=== PATIENT | male | born 1955 | race Caucasian/White ===

== ENCOUNTER 2017-01-30 05:43 | Day surgery (SDC) | payer OTHER ==
[2017-01-29 15:54] VITALS: BMI 28.2
[2017-01-30] MEDS ORDERED: ONDANSETRON 4 MG/2 ML VIAL IVPUSH PRN (06:56)
--- NOTE | 2017-01-30 07:08 | HP ---
Admitting History and Physical - Admission History of Present Illness: pt is a 61 y/o male with a past medical history of hypertension, gerd, NIDDM, and depression. Patient presents for ECT. This will be his first ect session. He reports struggling with depression for several years and has been placed on various of medications with no relief of depressive symptoms. He denies any suicidal or homicidal ideation, visual or auditory hallucinations. he denies any suicidal attempts in the past. patient does reports a recent admission to [facility] ([facility]) for epigastric pain. He was evaluated by cardiology, and echo and stress test was normal as per the patient History Source: Patient, Family Member Limitations to Obtaining History: No Limitations - Past Medical History Cardiovascular: Yes: HTN Gastrointestinal: Yes: GERD - Smoking History Smoking history: Never smoked - Alcohol/Substance Use Hx Alcohol Use: No Home Medications - Allergies Allergies/Adverse Reactions: Allergies Allergy/AdvReac Type Severity Reaction Status Date / Time amoxicillin trihydrate Allergy Nausea Verified 01/29/17 15:42 [From Augmentin] potassium clavulanate Allergy Nausea Verified 01/29/17 15:42 [From Augmentin] - Home Medications Home Medications: Ambulatory Orders Alendronate Na [Fosamax] 70 mg PO Q7D 01/30/17 Amlodipine Besylate [Norvasc -] 10 mg PO DAILY 01/30/17 Aripiprazole [Abilify] 20 mg PO DAILY 01/30/17 Clonazepam [Klonopin] 1 mg PO ASDIR PRN 01/30/17 Escitalopram Oxalate [Lexapro -] 20 mg PO DAILY 01/30/17 Esomeprazole Mag Trihydrate [NexIUM for SUSP] 40 mg PO BID 01/30/17 Losartan Potassium 50 mg PO DAILY 01/30/17 Metformin HCl [Glucophage] 1,000 mg PO BID 01/30/17 Risperidone [Risperdal] 1 mg PO HS 01/30/17 Simvastatin [Zocor -] 40 mg PO HS 01/30/17 Sucralfate Oral Suspension [Carafate *Oral Susp*] 1 gm PO BID 01/30/17 Zolpidem Tartrate [Ambien] 10 mg PO HS 01/30/17 Family Disease History - Family Disease History Family History: Denies Review of Systems - Review of Systems Constitutional: reports: No Symptoms Eyes: reports: No Symptoms HENT: reports: No Symptoms Neck: reports: No Symptoms Cardiovascular: reports: No Symptoms Respiratory: reports: No Symptoms Gastrointestinal: reports: No Symptoms Genitourinary: reports: No Symptoms Musculoskeletal: reports: No Symptoms Integumentary: reports: No Symptoms Neurological: reports: No Symptoms Endocrine: reports: No Symptoms Hematology/Lymphatic: reports: No Symptoms Psychiatric: reports: Depression Physical Examination Vital Signs: Vital Signs Temperature 98 F 01/30/17 06:35 Pulse Rate 72 01/30/17 06:35 Respiratory Rate 18 01/30/17 06:35 Blood Pressure 132/72 01/30/17 06:35 O2 Sat by Pulse Oximetry (%) 96 01/30/17 06:35 Constitutional: Yes: Well Nourished, No Distress, Calm Eyes: Yes: WNL, Conjunctiva Clear, EOM Intact HENT: Yes: WNL, Atraumatic, Normocephalic Neck: Yes: WNL, Supple, Trachea Midline Cardiovascular: Yes: WNL, Regular Rate and Rhythm, S1, S2 Respiratory: Yes: WNL, Regular, CTA Bilaterally Gastrointestinal: Yes: WNL, Normal Bowel Sounds, Soft ...Rectal Exam: Yes: Deferred Renal/: Yes: WNL Breast(s): Yes: WNL Musculoskeletal: Yes: WNL Extremities: Yes: WNL Edema: No Peripheral Pulses WNL: Yes Peripheral Pulses: Left Radial: 4+, Left Doralis Pedis: 3+, Right Dorsalis Pedis : 3+, Left Femoral: 3+, Right Femoral: 3+ Integumentary: Yes: WNL Neurological: Yes: WNL, Alert, Oriented ...Motor Strength: WNL Psychiatric: Yes: WNL, Alert, Oriented, Other (flat affect) Labs: 01/13 reviewed Imaging - Results EKG: Image Reviewed, Other (nsr nst changes to inferior leads unchanged from prior ekg 01/08/17) Other: Other (echo lvef 60-65% stress echo wnl 2013) Assessment/Plan pt is a 61 y/o male that presents for ect, pt has received anesthesia in the past and denies any adverse reaction to anesthesia labs, ekg, and echo reports reviewed pt is low risk for procedure informed consent, risks/benefits to be obtained by Dr Liu
[2017-01-30] MEDS ORDERED: KETAMINE HCL 500 MG/10 ML VIAL ONE (07:30)
[2017-01-30 09:18] VITALS: TEMP 97.6
[2017-01-30 09:19] VITALS: BP 128/77; PULSE 74
--- NOTE | 2017-01-30 13:53 | EKG ---
Test Reason : Blood Pressure : / mmHG Vent. Rate : 072 BPM Atrial Rate : 072 BPM P-R Int : 148 ms QRS Dur : 088 ms QT Int : 368 ms P-R-T Axes : 010 000 005 degrees QTc Int : 402 ms SINUS RHYTHM NONSPECIFIC ST AND T WAVE ABNORMALITY NO PREVIOUS ECGS AVAILABLE Confirmed by MARCO BUCHANAN MD ([id number] on 01/30/2017 1:53:27 PM Referred By: Bennie Liu Confirmed By:MARCO BUCHANAN MD
== END 2017-01-30 09:00 | disposition home or self-care (01) ==
LOC: FECT 05:43
PROVIDERS: ATTEND Psychiatry & Neurology Psychiatry
PROC: GZB4ZZZ Other Electroconvulsive Therapy (ICD-10-PCS; principal; 2017-01-30 07:45)
DX: F33.2 Major depressive disorder, recurrent severe without psychotic features (principal)
CPT/HCPCS: 90870; 93005; 94760

== ENCOUNTER 2017-02-03 05:41 | Day surgery (SDC) | payer OTHER ==
[2017-01-30 11:08] VITALS: BMI 28.2
[2017-02-03] MEDS ORDERED: KETAMINE HCL 500 MG/10 ML VIAL ONE (08:24)
[2017-02-03 09:40] VITALS: TEMP 98
[2017-02-03 09:42] VITALS: BP 150/78; PULSE 75
== END 2017-02-03 09:25 | disposition home or self-care (01) ==
LOC: FECT 05:41
PROVIDERS: ATTEND Psychiatry & Neurology Psychiatry
PROC: GZB4ZZZ Other Electroconvulsive Therapy (ICD-10-PCS; principal; 2017-02-03 08:00)
DX: F33.2 Major depressive disorder, recurrent severe without psychotic features (principal)
CPT/HCPCS: 90870; 94760

== ENCOUNTER 2017-02-05 05:35 | Day surgery (SDC) | payer OTHER ==
[2017-01-30 12:05] VITALS: BMI 28.2
[2017-02-05] MEDS ORDERED: KETAMINE HCL 500 MG/10 ML VIAL ONE (08:32)
[2017-02-05] MEDS ORDERED: ONDANSETRON 4 MG/2 ML VIAL IVPUSH PRN (09:29)
[2017-02-05] MEDS ORDERED: LACTATED RINGERS SOLUTION 1,000 ML IV SCH (09:30)
[2017-02-05 10:05] VITALS: TEMP 97.7
[2017-02-05 10:07] VITALS: BP 145/84; PULSE 84
== END 2017-02-05 10:00 | disposition home or self-care (01) ==
LOC: FECT 05:35
PROVIDERS: ATTEND Psychiatry & Neurology Psychiatry
PROC: GZB4ZZZ Other Electroconvulsive Therapy (ICD-10-PCS; principal; 2017-02-05 08:30)
DX: F33.2 Major depressive disorder, recurrent severe without psychotic features (principal)
CPT/HCPCS: 90870; 94760

== ENCOUNTER 2017-02-07 06:17 | Day surgery (SDC) | payer OTHER ==
[2017-01-30 12:25] VITALS: BMI 28.2
[2017-02-07 07:08] VITALS: TEMP 97.7
[2017-02-07] MEDS ORDERED: ACETAMINOPHEN INJECTION 100 ML IVPB ONE (07:41)
[2017-02-07] MEDS ORDERED: KETAMINE HCL 500 MG/10 ML VIAL ONE (07:43)
[2017-02-07 08:58] VITALS: BP 129/71; PULSE 62
== END 2017-02-07 09:05 | disposition home or self-care (01) ==
LOC: FECT 06:17
PROVIDERS: ATTEND Psychiatry & Neurology Psychiatry
PROC: GZB4ZZZ Other Electroconvulsive Therapy (ICD-10-PCS; principal; 2017-02-07 07:30)
DX: F33.2 Major depressive disorder, recurrent severe without psychotic features (principal)
CPT/HCPCS: 90870; 94760

== ENCOUNTER 2017-02-10 05:42 | Day surgery (SDC) | payer OTHER ==
[2017-02-04 11:28] VITALS: BMI 28.2
[2017-02-10] MEDS ORDERED: KETAMINE HCL 500 MG/10 ML VIAL ONE (07:52)
[2017-02-10 08:50] VITALS: TEMP 98.9
[2017-02-10 09:04] VITALS: BP 157/78; PULSE 73
== END 2017-02-10 09:10 | disposition home or self-care (01) ==
LOC: FECT 05:42
PROVIDERS: ATTEND Psychiatry & Neurology Psychiatry
PROC: GZB4ZZZ Other Electroconvulsive Therapy (ICD-10-PCS; principal; 2017-02-10 08:00)
DX: F33.2 Major depressive disorder, recurrent severe without psychotic features (principal)
CPT/HCPCS: 90870; 94760

== ENCOUNTER 2017-02-12 05:25 | Day surgery (SDC) | payer OTHER ==
[2017-02-05 07:36] VITALS: BMI 28.2
[2017-02-12] MEDS ORDERED: KETAMINE HCL 500 MG/10 ML VIAL ONE (08:35)
[2017-02-12 09:49] VITALS: TEMP 98.1
[2017-02-12 09:50] VITALS: BP 130/71; PULSE 84
== END 2017-02-12 09:45 | disposition home or self-care (01) ==
LOC: FECT 05:25
PROVIDERS: ATTEND Psychiatry & Neurology Psychiatry
PROC: GZB4ZZZ Other Electroconvulsive Therapy (ICD-10-PCS; principal; 2017-02-12 07:45)
DX: F33.2 Major depressive disorder, recurrent severe without psychotic features (principal)
CPT/HCPCS: 90870; 94760

== ENCOUNTER 2017-02-14 05:40 | Day surgery (SDC) | payer OTHER ==
[2017-02-04 14:09] VITALS: BMI 28.2
[2017-02-14] MEDS ORDERED: KETAMINE HCL 500 MG/10 ML VIAL ONE (07:40)
[2017-02-14 08:59] VITALS: BP 140/80; PULSE 68
[2017-02-14 10:22] VITALS: TEMP 98
[2017-02-14] MEDS ORDERED: ONDANSETRON 4 MG/2 ML VIAL IVPUSH PRN (10:49)
[2017-02-14] MEDS ORDERED: LACTATED RINGERS SOLUTION 1,000 ML IV SCH (11:00)
== END 2017-02-14 09:00 | disposition home or self-care (01) ==
LOC: FECT 05:40
PROVIDERS: ATTEND Psychiatry & Neurology Psychiatry
PROC: GZB4ZZZ Other Electroconvulsive Therapy (ICD-10-PCS; principal; 2017-02-14 07:45)
DX: F33.2 Major depressive disorder, recurrent severe without psychotic features (principal)
CPT/HCPCS: 90870; 94760

== ENCOUNTER 2017-02-19 05:42 | Day surgery (SDC) | payer OTHER ==
[2017-02-13 15:27] VITALS: BMI 28.2
[2017-02-19 06:56] VITALS: TEMP 97.6
[2017-02-19] MEDS ORDERED: ACETAMINOPHEN 325 MG TABLET (FP) PO PRN (07:29)
[2017-02-19] MEDS ORDERED: ONDANSETRON 4 MG/2 ML VIAL IVPUSH PRN (07:29)
[2017-02-19] MEDS ORDERED: KETAMINE HCL 500 MG/10 ML VIAL ONE (07:57)
[2017-02-19 10:18] VITALS: BP 132/76; PULSE 72
== END 2017-02-19 09:15 | disposition home or self-care (01) ==
LOC: FECT 05:42
PROVIDERS: ATTEND Psychiatry & Neurology Psychiatry
PROC: GZB4ZZZ Other Electroconvulsive Therapy (ICD-10-PCS; principal; 2017-02-19 08:00)
DX: F33.2 Major depressive disorder, recurrent severe without psychotic features (principal)
CPT/HCPCS: 90870; 94760

== ENCOUNTER 2017-02-21 06:05 | Day surgery (SDC) | payer OTHER ==
[2017-02-13 15:59] VITALS: BMI 28.2
[2017-02-21] MEDS ORDERED: KETAMINE HCL 500 MG/10 ML VIAL ONE (07:57)
[2017-02-21 08:08] VITALS: TEMP 97.8
[2017-02-21] MEDS ORDERED: LACTATED RINGERS SOLUTION 1,000 ML IV SCH (08:30)
[2017-02-21 08:35] VITALS: BP 134/74; PULSE 77
== END 2017-02-21 08:30 | disposition home or self-care (01) ==
LOC: FECT 06:05
PROVIDERS: ATTEND Psychiatry & Neurology Psychiatry
PROC: GZB4ZZZ Other Electroconvulsive Therapy (ICD-10-PCS; principal; 2017-02-21 07:30)
DX: F33.2 Major depressive disorder, recurrent severe without psychotic features (principal)
CPT/HCPCS: 90870; 94760

== ENCOUNTER 2017-02-25 05:40 | Day surgery (SDC) | payer OTHER ==
[2017-02-04 14:41] VITALS: BMI 28.2
[2017-02-25] MEDS ORDERED: KETAMINE HCL 500 MG/10 ML VIAL ONE (07:09)
[2017-02-25] MEDS ORDERED: ONDANSETRON 4 MG/2 ML VIAL IVPUSH PRN (07:50)
[2017-02-25] MEDS ORDERED: ACETAMINOPHEN 325 MG TABLET (FP) PO PRN (07:50)
[2017-02-25 08:28] VITALS: TEMP 97.6
[2017-02-25 08:59] VITALS: BP 144/81; PULSE 87
== END 2017-02-25 09:01 | disposition home or self-care (01) ==
LOC: FECT 05:40
PROVIDERS: ATTEND Psychiatry & Neurology Psychiatry
PROC: GZB4ZZZ Other Electroconvulsive Therapy (ICD-10-PCS; principal; 2017-02-25 07:30)
DX: F33.2 Major depressive disorder, recurrent severe without psychotic features (principal)
CPT/HCPCS: 90870; 94760

== ENCOUNTER 2017-02-28 05:41 | Day surgery (SDC) | payer OTHER ==
[2017-02-21 12:25] VITALS: BMI 28.2
--- NOTE | 2017-02-28 06:53 | HP ---
Admitting History and Physical - Admission History of Present Illness: patient is a 61 y/o male with a past medical history of niddm, htn, gerd, and depression. patient presents for ECT, his last ect was 02/25/17. patient reports feeling well, he reports an improvement symptoms since starting ect. patient denies any changes medications. he denies any recent illnesses or hospitalizations. patient denies any suicidal or homicidal ideation, visual or auditory hallucinations. History Source: Patient Limitations to Obtaining History: No Limitations - Past Medical History Cardiovascular: Yes: HTN Gastrointestinal: Yes: GERD - Smoking History Smoking history: Never smoked Have you smoked in the past 12 months: No - Alcohol/Substance Use Hx Alcohol Use: No - Social History Usual Living Arrangement: Yes: With Spouse ADL: Independent History of Recent Travel: No Home Medications - Allergies Allergies/Adverse Reactions: Allergies Allergy/AdvReac Type Severity Reaction Status Date / Time amoxicillin trihydrate Allergy Nausea Verified 02/04/17 14:41 [From Augmentin] potassium clavulanate Allergy Nausea Verified 02/04/17 14:41 [From Augmentin] - Home Medications Home Medications: Ambulatory Orders Alendronate Na [Fosamax (Weekly)] 70 mg PO Q7D 01/30/17 Amlodipine Besylate [Norvasc -] 10 mg PO DAILY 01/30/17 Aripiprazole [Abilify] 20 mg PO DAILY 01/30/17 Clonazepam [Klonopin] 1 mg PO ASDIR PRN 01/30/17 Escitalopram Oxalate [Lexapro -] 20 mg PO DAILY 01/30/17 Esomeprazole Mag Trihydrate [Nexium Packets] 40 mg PO BID 01/30/17 Losartan Potassium 50 mg PO DAILY 01/30/17 Metformin HCl [Glucophage] 1,000 mg PO BID 01/30/17 Risperidone [Risperdal] 1 mg PO HS 01/30/17 Simvastatin [Zocor -] 40 mg PO HS 01/30/17 Sucralfate Oral Suspension [Carafate Oral Suspension -] 1 gm PO BID 01/30/17 Zolpidem Tartrate [Ambien] 10 mg PO HS 01/30/17 Family Disease History - Family Disease History Family History: Unremarkable Review of Systems - Review of Systems Constitutional: reports: No Symptoms Eyes: reports: No Symptoms HENT: reports: No Symptoms Neck: reports: No Symptoms Cardiovascular: reports: No Symptoms Respiratory: reports: No Symptoms Gastrointestinal: reports: No Symptoms Genitourinary: reports: No Symptoms Musculoskeletal: reports: No Symptoms Integumentary: reports: No Symptoms Neurological: reports: No Symptoms Endocrine: reports: No Symptoms Hematology/Lymphatic: reports: No Symptoms Psychiatric: reports: No Symptoms Physical Examination Vital Signs: Vital Signs Temperature 97.6 F 02/28/17 06:39 Pulse Rate 74 02/28/17 06:39 Respiratory Rate 18 02/28/17 06:39 Blood Pressure 130/73 02/28/17 06:39 O2 Sat by Pulse Oximetry (%) 98 02/28/17 06:39 Constitutional: Yes: Well Nourished, No Distress, Calm Eyes: Yes: WNL, Conjunctiva Clear, EOM Intact HENT: Yes: WNL, Atraumatic, Normocephalic Neck: Yes: WNL, Supple, Trachea Midline Cardiovascular: Yes: WNL, Regular Rate and Rhythm, S1, S2 Respiratory: Yes: WNL, Regular, CTA Bilaterally Gastrointestinal: Yes: WNL, Normal Bowel Sounds, Soft ...Rectal Exam: Yes: Deferred Renal/: Yes: WNL Musculoskeletal: Yes: WNL Extremities: Yes: WNL Edema: No Peripheral Pulses WNL: Yes Peripheral Pulses: Left Radial: 4+, Right Radial: 4+, Left Doralis Pedis: 3+, Right Dorsalis Pedis: 3+, Left Femoral: 3+, Right Femoral: 3+ Integumentary: Yes: WNL Neurological: Yes: WNL, Alert, Oriented ...Motor Strength: WNL Psychiatric: Yes: WNL, Alert, Oriented Labs: labs reviewed 01/13 Imaging - Results Other: Other (stress echo 01/13 wnl echo 01/13 EF 60-65%) Assessment/Plan pt is a 61 y/o male that presents for ect, pt has received ect in the past and denies any adverse reaction to anesthesia. labs and ekg reviewed. pt is low risk for procedure informed consent, risk/benefits to be obtained by Dr Liu
[2017-02-28] MEDS ORDERED: KETAMINE HCL 500 MG/10 ML VIAL ONE (07:53)
[2017-02-28 08:42] VITALS: BP 147/84; PULSE 88; TEMP 98
== END 2017-02-28 09:27 | disposition home or self-care (01) ==
LOC: FECT 05:41
PROVIDERS: ATTEND Psychiatry & Neurology Psychiatry
PROC: GZB4ZZZ Other Electroconvulsive Therapy (ICD-10-PCS; principal; 2017-02-28 08:00)
DX: F33.2 Major depressive disorder, recurrent severe without psychotic features (principal)
CPT/HCPCS: 90870; 94760

== ENCOUNTER 2017-03-03 05:45 | Day surgery (SDC) | payer OTHER ==
[2017-02-25 12:09] VITALS: BMI 28.2
[2017-03-03 06:14] VITALS: TEMP 97.6
[2017-03-03] MEDS ORDERED: KETAMINE HCL 500 MG/10 ML VIAL ONE (07:25)
[2017-03-03 08:56] VITALS: BP 145/75; PULSE 85
[2017-03-03] MEDS ORDERED: ACETAMINOPHEN 325 MG TABLET (FP) PO PRN (09:16)
== END 2017-03-03 08:55 | disposition home or self-care (01) ==
LOC: FECT 05:45
PROVIDERS: ATTEND Psychiatry & Neurology Psychiatry
PROC: GZB4ZZZ Other Electroconvulsive Therapy (ICD-10-PCS; principal; 2017-03-03 07:45)
DX: F33.2 Major depressive disorder, recurrent severe without psychotic features (principal)
CPT/HCPCS: 90870; 94760

== ENCOUNTER 2017-03-13 05:39 | Day surgery (SDC) | payer OTHER ==
[2017-03-03 10:12] VITALS: BMI 28.2
[2017-03-13] MEDS ORDERED: KETAMINE HCL 500 MG/10 ML VIAL ONE (07:32)
[2017-03-13] MEDS ORDERED: ONDANSETRON 4 MG/2 ML VIAL IVPUSH PRN (08:02)
[2017-03-13 08:31] VITALS: TEMP 97.6
[2017-03-13 08:44] VITALS: BP 130/77; PULSE 86
== END 2017-03-13 08:45 | disposition home or self-care (01) ==
LOC: FECT 05:39
PROVIDERS: ATTEND Psychiatry & Neurology Psychiatry
PROC: GZB4ZZZ Other Electroconvulsive Therapy (ICD-10-PCS; principal; 2017-03-13 07:45)
DX: F33.2 Major depressive disorder, recurrent severe without psychotic features (principal)
CPT/HCPCS: 90870; 94760

== ENCOUNTER 2017-03-20 05:41 | Day surgery (SDC) | payer OTHER ==
[2017-03-13 11:18] VITALS: BMI 28.2
[2017-03-20] MEDS ORDERED: KETAMINE HCL 500 MG/10 ML VIAL ONE (06:57)
[2017-03-20 07:41] VITALS: TEMP 97.5
[2017-03-20 07:57] VITALS: BP 135/72; PULSE 79
== END 2017-03-20 08:23 | disposition home or self-care (01) ==
LOC: FECT 05:41
PROVIDERS: ATTEND Psychiatry & Neurology Psychiatry
PROC: GZB4ZZZ Other Electroconvulsive Therapy (ICD-10-PCS; principal; 2017-03-20 07:45)
DX: F33.2 Major depressive disorder, recurrent severe without psychotic features (principal)
CPT/HCPCS: 90870; 94760

== ENCOUNTER 2017-03-27 05:47 | Day surgery (SDC) | payer OTHER ==
[2017-03-20 11:34] VITALS: BMI 28.2
[2017-03-27] MEDS ORDERED: KETAMINE HCL 500 MG/10 ML VIAL ONE ×2 (08:50→08:52)
[2017-03-27 10:05] VITALS: TEMP 98.3
[2017-03-27 10:06] VITALS: BP 130/72; PULSE 81
== END 2017-03-27 10:10 | disposition home or self-care (01) ==
LOC: FECT 05:47
PROVIDERS: ATTEND Psychiatry & Neurology Psychiatry
PROC: GZB4ZZZ Other Electroconvulsive Therapy (ICD-10-PCS; principal; 2017-03-27 08:15)
DX: F33.2 Major depressive disorder, recurrent severe without psychotic features (principal)
CPT/HCPCS: 90870; 94760

== ENCOUNTER 2017-04-11 05:39 | Day surgery (SDC) | payer OTHER ==
[2017-04-04 11:02] VITALS: BMI 28.2
--- NOTE | 2017-04-11 06:58 | HP ---
Admitting History and Physical - Admission History of Present Illness: patient is a 61 y/o male with depression, niddm, gerd, htn. Patient presents for ect, his last ect was 03/27/17. Patient reports feeling well, denies any recent illnesses or hospitalization. He reports a decrease in depressive symptoms since starting ect. He reports lexapro was discontinued and respirdal was decreased within the past 30 days. He denies any suicidal or homicidal ideation, auditory or visual hallucinations. History Source: Patient Limitations to Obtaining History: No Limitations - Past Medical History Cardiovascular: Yes: HTN Gastrointestinal: Yes: GERD - Smoking History Smoking history: Never smoked Have you smoked in the past 12 months: No - Alcohol/Substance Use Hx Alcohol Use: No History of Substance Use: reports: None - Social History Usual Living Arrangement: Yes: With Spouse ADL: Independent History of Recent Travel: No Home Medications - Allergies Allergies/Adverse Reactions: Allergies Allergy/AdvReac Type Severity Reaction Status Date / Time amoxicillin trihydrate Allergy Nausea Verified 02/04/17 14:41 [From Augmentin] potassium clavulanate Allergy Nausea Verified 02/04/17 14:41 [From Augmentin] - Home Medications Home Medications: Ambulatory Orders Alendronate Na [Fosamax (Weekly)] 70 mg PO Q7D 01/30/17 Amlodipine Besylate [Norvasc -] 10 mg PO DAILY 01/30/17 Clonazepam [Klonopin] 1 mg PO ASDIR PRN 01/30/17 Esomeprazole Mag Trihydrate [Nexium Packets] 40 mg PO BID 01/30/17 Losartan Potassium 50 mg PO DAILY 01/30/17 Metformin HCl [Glucophage] 1,000 mg PO BID 01/30/17 Simvastatin [Zocor -] 40 mg PO HS 01/30/17 Sucralfate Oral Suspension [Carafate Oral Suspension -] 1 gm PO BID 01/30/17 Zolpidem Tartrate [Ambien] 10 mg PO HS 01/30/17 Aripiprazole [Abilify -] 15 mg PO DAILY 03/27/17 Family Disease History - Family Disease History Family History: Denies Review of Systems - Review of Systems Constitutional: reports: No Symptoms Eyes: reports: No Symptoms HENT: reports: No Symptoms Neck: reports: No Symptoms Cardiovascular: reports: No Symptoms Respiratory: reports: No Symptoms Gastrointestinal: reports: No Symptoms Genitourinary: reports: No Symptoms Musculoskeletal: reports: No Symptoms Integumentary: reports: No Symptoms Neurological: reports: No Symptoms Endocrine: reports: No Symptoms Hematology/Lymphatic: reports: No Symptoms Psychiatric: reports: No Symptoms Physical Examination Constitutional: Yes: Well Nourished, No Distress, Calm Eyes: Yes: WNL, Conjunctiva Clear, EOM Intact HENT: Yes: WNL, Atraumatic, Normocephalic Neck: Yes: WNL, Supple, Trachea Midline Cardiovascular: Yes: WNL, Regular Rate and Rhythm, S1, S2 Respiratory: Yes: WNL, Regular, CTA Bilaterally Gastrointestinal: Yes: WNL, Normal Bowel Sounds, Soft ...Rectal Exam: Yes: Deferred Renal/: Yes: WNL Musculoskeletal: Yes: WNL Extremities: Yes: WNL Edema: No Peripheral Pulses WNL: Yes Peripheral Pulses: Left Radial: 4+, Right Radial: 4+, Left Doralis Pedis: 3+, Right Dorsalis Pedis: 3+, Left Femoral: 3+, Right Femoral: 3+ Integumentary: Yes: WNL Neurological: Yes: WNL, Alert, Oriented ...Motor Strength: WNL Psychiatric: Yes: WNL, Alert, Oriented Labs: reviewed 01/13 Imaging - Results EKG: Image Reviewed, Other (nsr with non specific st changes) Other: Other (echo lvef 60-65%, normal stress echo 01/13) Assessment/Plan pt is a 61 y/o male that presents for ect, he has received ect in the past and denies any past reaction to anesthesia patient's labs and ekg reviewed pt is low risk for procedure informed consent, risk/benefits to be obtained by Dr Liu
[2017-04-11] MEDS ORDERED: KETAMINE HCL 500 MG/10 ML VIAL ONE (07:44)
[2017-04-11 08:47] VITALS: PULSE 80
[2017-04-11 09:06] VITALS: BP 128/79; TEMP 98
== END 2017-04-11 09:05 | disposition home or self-care (01) ==
LOC: FECT 05:39
PROVIDERS: ATTEND Psychiatry & Neurology Psychiatry
PROC: GZB4ZZZ Other Electroconvulsive Therapy (ICD-10-PCS; principal; 2017-04-11 07:30)
DX: F33.2 Major depressive disorder, recurrent severe without psychotic features (principal)
CPT/HCPCS: 90870; 94760

== ENCOUNTER 2017-04-25 05:41 | Day surgery (SDC) | payer OTHER ==
[2017-04-18 08:11] VITALS: BMI 28.2
[2017-04-25] MEDS ORDERED: KETAMINE HCL 500 MG/10 ML VIAL ONE (07:09)
[2017-04-25 08:23] VITALS: TEMP 97.5
[2017-04-25 09:11] VITALS: BP 136/79; PULSE 74
== END 2017-04-25 08:45 | disposition home or self-care (01) ==
LOC: FECT 05:41
PROVIDERS: ATTEND Psychiatry & Neurology Psychiatry
PROC: GZB4ZZZ Other Electroconvulsive Therapy (ICD-10-PCS; principal; 2017-04-25 07:15)
DX: F33.2 Major depressive disorder, recurrent severe without psychotic features (principal)
CPT/HCPCS: 90870; 94760

== ENCOUNTER 2017-05-09 05:40 | Day surgery (SDC) | payer OTHER ==
[2017-05-09 06:56] VITALS: TEMP 97.5; BMI 27.4
[2017-05-09] MEDS ORDERED: KETAMINE HCL 500 MG/10 ML VIAL ONE (07:45)
[2017-05-09 09:27] VITALS: BP 120/77; PULSE 67
== END 2017-05-09 09:30 | disposition home or self-care (01) ==
LOC: FECT 05:40
PROVIDERS: ATTEND Psychiatry & Neurology Psychiatry
PROC: GZB4ZZZ Other Electroconvulsive Therapy (ICD-10-PCS; principal; 2017-05-09 07:15)
DX: F33.2 Major depressive disorder, recurrent severe without psychotic features (principal)
CPT/HCPCS: 90870; 94760